=== PATIENT | female | born 1955 | race Caucasian/White ===

== ENCOUNTER → 2023-07-07 17:38 | Outpatient (REF) | payer MEDICARE, OTHER, SELFPAY | LOC: MRI 17:38 | PROVIDERS: ATTENDING PHYSICIAN Family Medicine | DX: M54.14 Radiculopathy, thoracic region (principal) | CPT/HCPCS: 72141; 72146 ==

== ENCOUNTER → 2024-07-31 14:12 | Outpatient (REF) | payer MEDICARE, OTHER, SELFPAY | LOC: HWRAD 14:12 | PROVIDERS: ATTENDING PHYSICIAN Physician Assistant; FAMILY PHYSICIAN Family Medicine | DX: J32.8 Other chronic sinusitis (principal) | CPT/HCPCS: 70486 ==

== ENCOUNTER → 2025-02-10 08:17 | Outpatient (REF) | payer MEDICARE, OTHER, SELFPAY ==
[2025-02-10 11:26] LABS: Hematocrit 38.3 % (37.0-47.0); Hemoglobin 12.4 g/dL (12.0-16.0); Mean Corp Hgb Conc. 32.4 g/dL (33.0-37.0); Mean Corpuscular Volume 90.3 fL (81.0-99.0); Platelet Count 323 10^3/uL (130-400); Red Cell Dist. Width 14.4 % (11.5-14.5)
[2025-02-10 12:14] LABS: Blood Urea Nitrogen 14 mg/dl (7-17); Calcium 9.0 mg/dl (8.4-10.2); Carbon Dioxide 30 mmol/L (22-30); Chloride 103 mmol/L (98-107); Glucose 73 mg/dl (70-99); Potassium 4.0 mmol/L (3.5-5.1); Sodium 137 mmol/L (135-145); eGFR > 60.00
== END ==
LOC: SDSPAT 08:17
PROVIDERS: ATTENDING PHYSICIAN Otolaryngology; FAMILY PHYSICIAN Family Medicine
DX: Z01.818 Encounter for other preprocedural examination (principal)
CPT/HCPCS: 80048; 85027; 93005

== ENCOUNTER 2025-02-12 06:14 | Day surgery (SDC) | payer MEDICARE, OTHER, SELFPAY ==
[2025-02-10 11:24] VITALS: BMI 24.9
[2025-02-12] VITALS (8 sets, daily range): BP systolic 116–136; BP diastolic 56–69; BMI 24.9
[2025-02-12] MEDS: TYLENOL 1000 MG PO (09:42)
[2025-02-12] MEDS: NORMOSOL-R/PLASMALYTE-A 1000 IV (09:48)
== END 2025-02-12 14:40 | disposition home or self-care (01) ==
LOC: SDS 06:14
PROVIDERS: ATTENDING PHYSICIAN Otolaryngology
DX: J32.3 Chronic sphenoidal sinusitis (principal); J34.2 Deviated nasal septum; J34.3 Hypertrophy of nasal turbinates; J34.89 Other specified disorders of nose and nasal sinuses
CPT/HCPCS: 31257; 88304; 88311